=== PATIENT | female | born 1990 | race African-American/Black ===

== ENCOUNTER 2020-03-27 02:50 | Emergency (ER) | payer OTHER ==
[~2020-03-27] VITALS: Ht 162.6 cm; Wt 76.0 kg
[2020-03-27 08:02] VITALS: BP 115/47
== END 2020-03-27 08:03 | disposition home or self-care (01) ==
LOC: ER 02:50
DX: O26.891 Other specified pregnancy related conditions, first trimester (principal); R10.11 Right upper quadrant pain; Z3A.13 13 weeks gestation of pregnancy
CPT/HCPCS: 76801; 99285